=== PATIENT | female | born 1940 | race Caucasian/White ===

== ENCOUNTER 2017-11-12 19:30 | Inpatient (IN) | END 2017-11-14 14:32 | disposition home or self-care (01) | DRG 689 ==

== ENCOUNTER 2017-12-21 21:52 | Observation (INO) | END 2017-12-23 16:33 | disposition home or self-care (01) ==

== ENCOUNTER 2018-01-01 14:36 | Observation (INO) | END 2018-01-02 14:13 | disposition home or self-care (01) ==